=== PATIENT | female | born 1960 | race Caucasian/White ===

== ENCOUNTER 2018-09-06 21:22 | Emergency (ER) | payer OTHER ==
[~2018-09-06] VITALS: Ht 170.2 cm; Wt 69.4 kg
[~2018-09-06 21:22] MED LIST: ADVAIR HFA115 MCG/21 INH; ALBUTEROL2.5 MG/0.5 INH; BACTRIM DS TAB1 EACH PO; CITRATE OF MAG296 ML PO; NAPROSYN500 MG PO; OMEPRAZOLE40 MG PO; PHENAZOPYRIDIN200 M2 PO; XANAX 0.5 MG0.5 MG PO
[2018-09-06 22:14] LABS: ABSOLUTE BASOPHILS 0.1 thou/uL (0.0-0.2); ABSOLUTE EOSINOPHILS 0.4 thou/uL (0.0-0.7); ABSOLUTE LYMPHOCYTES 3.2 thou/uL (0.8-5.3); ABSOLUTE MONOCYTES 0.9 thou/uL (0.0-1.2); ABSOLUTE NEUTROPHILS 2.9 thou/uL (1.6-8.1); BASOPHILS 0.9 %; EOSINOPHILS 5.8 %; HEMATOCRIT 36.4 % (37.0-47.0); HEMOGLOBIN 12.1 gm/dL (12.0-15.0); LYMPHOCYTES 42.7 %; MCH 29.9 pg (26.0-34.0); MCHC 33.1 g/dL (28.0-37.0); MCV 90.5 fL (80.0-100.0); MONOCYTES 11.5 %; MPV 7.5 fl. (7.2-11.1); NUCLEATED RBCS 0 /100WBC; PLATELET COUNT* 277 thou/uL (150-400); POLYS 39.1 %; RBC 4.03 mil/uL (4.20-5.00); RDW-CV 13.5 % (10.5-14.5); WBC 7.5 thou/uL (4.0-11.0)
[2018-09-06 22:37] LABS: ALBUMIN 3.8 g/dL (3.4-5.0); ALKALINE PHOSPHATASE 99 U/L (46-116); ANION GAP 10 mmol/L (7-16); BUN 16 mg/dL (7-18); CALCIUM 9.6 mg/dL (8.5-10.1); CHLORIDE 106 mmol/L (98-107); CO2 28 mmol/L (21-32); CREATININE 0.9 mg/dL (0.6-1.3); GLUCOSE 102 mg/dL (70-99); POTASSIUM 4.4 mmol/L (3.5-5.1); SGOT 16 U/L (15-37); SGPT 21 U/L (30-65); SODIUM 144 mmol/L (136-145); TOTAL BILIRUBIN 0.1 mg/dL (<0.1-1.0); TOTAL PROTEIN 7.4 g/dL (6.4-8.2); TROPONIN-I LEVEL <0.06 ng/mL (<0.06)
[2018-09-06] MEDS ORDERED: PREDNISONE 20 M20 MG PO (23:06)
[2018-09-06] MEDS ORDERED: ZPAK PO (23:06)
[2018-09-06 23:20] VITALS: BP 136/81
--- NOTE | 2018-09-07 10:04 | EKG ---
[place] [address] ELECTROCARDIOGRAM REPORT Name: MORAIMA HOLLOWAY Room: [facility]#: [id number] Admission: 09/06/18 Attend Phys: Discharge: 09/06/18 Date of : 58 Report #: [id number] THIS REPORT FOR: //name// [facility] ED Test Date: 2018-09-06 Test Time: 22:26:16 Pat Name: MORAIMA HOLLOWAY Department: Room: Gender: F [employer]: HSELL : 1960 Requested By: Teresa Tyler Order Number: [id number] MD: Vance Carver Measurements Intervals [place] Rate: 70 P: 0 [place]: 169 QRS: -9 QRSD: 92 T: 3 QT: 407 QTc: 440 Interpretive Statements Sinus rhythm Left ventricular hypertrophy No previous ECG available for comparison Electronically Signed On 09-07-2018 10:04:46 CDT by Vance Carver [email or web address] <ELECTRONICALLY SIGNED> By: Vance Carver MD, [facility] 09/07/18 1004 [id number] 25 Vance Carver MD, FACC /EPI
== END 2018-09-06 23:21 | disposition home or self-care (01) ==
LOC: M.ERS 21:22
PROVIDERS: Physician Assistant
DX: J44.1 Chronic obstructive pulmonary disease with (acute) exacerbation (principal); K21.9 Gastro-esophageal reflux disease without esophagitis; Z96.642 Presence of left artificial hip joint; Z88.0 Allergy status to penicillin

== ENCOUNTER 2019-07-05 20:11 | Emergency (ER) | payer OTHER ==
[~2019-07-05] VITALS: Ht 170.2 cm; Wt 71.7 kg
[~2019-07-05 20:11] MED LIST changes: +PREDNISONE 20 M20 MG PO; +ZPAK PO
[2019-07-05 21:28] LABS: URINE BILIRUBIN NEGATIVE (Negative); URINE BLOOD NEGATIVE (Negative); URINE CLARITY CLEAR; URINE COLOR YELLOW; URINE GLUCOSE-RANDOM NEGATIVE (Negative); URINE KETONES NEGATIVE (Negative); URINE LEUKOCYTES-REFLEX 1+ (Negative); URINE NITRITE-REFLEX NEGATIVE (Negative); URINE PROTEIN NEGATIVE (Negative); URINE SPECIFIC GRAVITY <= 1.005 (1.005-1.030); URINE UROBILINOGEN 0.2 E.U./dl (0.2-1.0)
[2019-07-05 21:40] LABS: CRYSTALS None Seen /LPF (None Seen); MUCUS None Seen strn/LPF (None Seen); SQUAMOUS >10 Many /LPF (0-3)
[2019-07-05 21:41] LABS: BACTERIA-REFLEX 1-9 Few /HPF (None Seen); CASTS None Seen /LPF (None Seen); URINE RBC None Seen /HPF (0-2); URINE WBC-REFLEX 0-5 Rare /HPF (0-5)
[2019-07-05 21:43] LABS: ABSOLUTE BASOPHILS 0.1 thou/uL (0.0-0.2); ABSOLUTE EOSINOPHILS 0.4 thou/uL (0.0-0.7); ABSOLUTE LYMPHOCYTES 2.5 thou/uL (0.8-5.3); ABSOLUTE MONOCYTES 0.7 thou/uL (0.0-1.2); ABSOLUTE NEUTROPHILS 4.8 thou/uL (1.6-8.1); BASOPHILS 0.8 %; HEMATOCRIT 38.2 % (37.0-47.0); MCH 31.4 pg (26.0-34.0); MCHC 34.2 g/dL (28.0-37.0); MCV 91.7 fL (80.0-100.0); MONOCYTES 8.6 %; MPV 7.4 fl. (7.2-11.1); NUCLEATED RBCS 0 /100WBC; PLATELET COUNT* 238 thou/uL (150-400); POLYS 56.6 %; RBC 4.16 mil/uL (4.20-5.00); RDW-CV 12.6 % (10.5-14.5); WBC 8.5 thou/uL (4.0-11.0)
[2019-07-05] MEDS ORDERED: CIPROFLOXACIN500 M1 PO (21:46)
[2019-07-05] MEDS ORDERED: HYDROCODON-ACE1 EAC7 PO (21:46)
[2019-07-05] MEDS ORDERED: ZOFRAN ODT4 MG PO (21:46)
[2019-07-05 21:59] LABS: CALCIUM 9.4 mg/dL (8.5-10.1); CREATININE 0.9 mg/dL (0.6-1.3); POTASSIUM 3.6 mmol/L (3.5-5.1)
[2019-07-05 22:04] LABS: TOTAL BILIRUBIN 0.3 mg/dL (<0.1-1.0); TOTAL PROTEIN 7.7 g/dL (6.4-8.2)
[2019-07-05 22:13] VITALS: BP 154/88
== END 2019-07-05 22:16 | disposition home or self-care (01) ==
LOC: M.ERS 20:11
PROVIDERS: Personal Emergency Response Attendant
DX: N39.0 Urinary tract infection, site not specified (principal); J44.9 Chronic obstructive pulmonary disease, unspecified; K21.9 Gastro-esophageal reflux disease without esophagitis; Z88.0 Allergy status to penicillin; Z96.642 Presence of left artificial hip joint